=== PATIENT | male | born 1970 | race Caucasian/White ===

== ENCOUNTER 2016-11-08 11:28 | Emergency (ER) | payer BC ==
[2016-11-08 11:34] VITALS: BP 140/93; PULSE 74; RESP 18; TEMP 97.5
[2016-11-08] MEDS ORDERED: TAMSULOSIN 0.4 MG CAP.ER.24H PO STA (11:40)
[2016-11-08] MEDS ORDERED: SODIUM CHLORIDE 0.9% 1,000 ML IV STA (11:40)
[2016-11-08] MEDS ORDERED: HYDROmorphone 1 MG/ML 1 ML SYRINGE IVP STA (11:40)
[2016-11-08] MEDS ORDERED: ONDANSETRON 4 MG/2 ML VIAL IVP STA (11:40)
[2016-11-08 12:09] LABS: Basophils % (A) 1 %; CH 29.8; CHCM 34.4; Eosinophils # (A) 0.2 k/uL (0-0.7); Eosinophils % (A) 4 %; HCT 45.8 % (39.0-53.0); HDW 2.59; HGB 16.1 gm/dL (13.0-17.5); Luc # (Auto) 0.17; Luc % (Auto) 3; Lymphocytes # (A) 1.2 k/uL (1.0-4.8); Lymphocytes % (A) 22 %; MCH 30.6 pg (25.0-35.0); MCHC 35.3 g/dL (31.0-37.0); MCV 86.8 fL (80.0-100.0); Mean Platelet Volume 6.2; Monocytes # (A) 0.3 k/uL (0-1.0); Monocytes % (A) 5 %; Neutrophils # (A) 3.6 k/uL (1.3-7.7); Neutrophils % (A) 65 %; RBC 5.27 m/uL (4.30-5.90); WBC 5.5 k/uL (3.8-10.6); WBC (Perox) 5.44
[2016-11-08 12:18] LABS: ALT 55 U/L (21-72); AST 28 U/L (17-59); Alkaline Phosphatase 71 U/L (38-126); Amylase 49 U/L (30-110); Anion Gap 12 mmol/L; Blood Urea Nitrogen 14 mg/dL (9-20); Calcium 9.7 mg/dL (8.4-10.2); Carbon Dioxide 22 mmol/L (22-30); Chloride 106 mmol/L (98-107); Glucose 121 mg/dL (74-99); Non-African American GFR(MDRD) >60 (>60 ml/min/1.73 sqM); Potassium 4.5 mmol/L (3.5-5.1); Sodium 140 mmol/L (137-145); Total Bilirubin 0.6 mg/dL (0.2-1.3); Total Protein 7.5 g/dL (6.3-8.2)
--- NOTE | 2016-11-08 12:26 | ED ---
Abdominal Pain HPI - General Chief Complaint: Abdominal Pain Stated Complaint: Abd.pain Time Seen by Provider: 11/08/16 11:36 Source: patient, RN notes reviewed Mode of arrival: ambulatory Limitations: no limitations - History of Present Illness Initial Comments: 46-year-old male presents to the emergency department with a chief complaint of left-sided flank pain that radiates into her left groin. Patient has a history of kidney stones states this is reminding him of it. Patient states he's had some nausea without vomiting. Patient states he has a headache changes in urination or blood in the urine that he has noticed. Patient states that he was concerned due to the pains without that he should be evaluated. Patient denies any recent fever, chills, shortness of breath, chest pain, abdominal vomiting, numbness or tingling, dysuria or hematuria, constipation or diarrhea, headaches or visual changes, or any other current symptoms. - Related Data Home Medications Medication Instructions Recorded Confirmed Cephalexin [Keflex] 500 mg PO BID 11/08/16 11/08/16 HYDROcodone/APAP 10-325MG [[place] 1 tab PO BID PRN 11/08/16 11/08/16 10-325] Lisinopril [Prinivil] 10 mg PO DAILY 11/08/16 11/08/16 Previous Rx's Medication Instructions Recorded Hydrocodone/Acetaminophen [[place] 1 each PO Q6HR PRN #20 tab 11/08/16 5-325] Ketorolac [Toradol] 10 mg PO Q6HR #20 tab 11/08/16 Ondansetron Odt [Zofran ODT] 4 mg PO Q8HR PRN #20 tab 11/08/16 Tamsulosin [Flomax] 0.4 mg PO DAILY #5 cap 11/08/16 Allergies Allergy/AdvReac Type Severity Reaction Status Date / Time No Known Allergies Allergy Verified 11/08/16 12:02 Review of Systems ROS Statement: Those systems with pertinent positive or pertinent negative responses have been documented in the HPI. ROS Other: All systems not noted in ROS Statement are negative. Past Medical History Past Medical History: Coronary Artery Disease (CAD) Additional Past Medical History / Comment(s): kidney stones, heart murmur History of Any Multi-Drug Resistant Organisms: None Reported Past Surgical History: Heart Catheterization, Tonsillectomy Additional Past Surgical History / Comment(s): lithotripsy Past Psychological History: No Psychological Hx Reported Smoking Status: Former smoker Past Alcohol Use History: None Reported Past Drug Use History: None Reported General Exam - General Exam Comments Initial Comments: General: The patient is awake and alert, in no distress, and does not appear acutely ill. Eye: Pupils are equal, round and reactive to light, extra-ocular movements are intact; there is normal conjunctiva bilaterally. No signs of icterus. Ears, nose, mouth and throat: There are moist mucous membranes and no oral lesions. Neck: The neck is supple, there is no tenderness. Cardiovascular: There is a regular rate and rhythm. No murmur, rub or gallop is appreciated. Respiratory: Lungs are clear to auscultation, respirations are non-labored, breath sounds are equal. No wheezes, stridor, rales, or rhonchi. Gastrointestinal: Soft, non-distended, non-tender abdomen without masses or organomegaly noted. There is no rebound or guarding present. No CVA tenderness. Bowel sounds are unremarkable. Back: There is no tenderness to palpation in the midline. There is no obvious deformity. No rashes noted. Musculoskeletal: Normal ROM, no tenderness, There is no pedal edema. There is no calf tenderness or swelling. Sensation intact. Pulses equal bilaterally 2+. Neurological: CN II-XII intact, There are no obvious motor or sensory deficits. Coordination appears grossly intact. Speech is normal. Skin: Skin is warm and dry and no rashes or lesions are noted. Psychiatric: Cooperative, appropriate mood & affect, normal judgment. Limitations: no limitations Course Vital Signs 11/08/16 11:32 Temperature 97.5 F L Pulse Rate 74 Respiratory 18 Rate Blood Pressure 140/93 O2 Sat by Pulse 99 Oximetry Medical Decision Making - Medical Decision Making 46-year-old male presents emergency Department chief complaint of left-sided flank pain. At this time CT results lab results are reviewed. We discussed care follow-up and return parameters. We discussed follow-up with urology questions. He stated he understood the plan. This time we will discharged home. - Lab Data Result diagrams: 11/08/16 11:40 11/08/16 11:40 Lab Results 11/08/16 11/08/16 11/08/16 Range/Units 11:40 11:40 12:48 WBC 5.5 (3.8-10.6) k/uL RBC 5.27 (4.30-5.90) m/uL Hgb 16.1 (13.0-17.5) gm/dL Hct 45.8 (39.0-53.0) % MCV 86.8 (80.0-100.0) fL MCH 30.6 (25.0-35.0) pg MCHC 35.3 (31.0-37.0) g/dL RDW 13.0 (11.5-15.5) % Plt Count 355 (150-450) k/uL Neutrophils % 65 % Lymphocytes % 22 % Monocytes % 5 % Eosinophils % 4 % Basophils % 1 % Neutrophils # 3.6 (1.3-7.7) k/uL Lymphocytes # 1.2 (1.0-4.8) k/uL Monocytes # 0.3 (0-1.0) k/uL Eosinophils # 0.2 (0-0.7) k/uL Basophils # 0.0 (0-0.2) k/uL Sodium 140 (137-145) mmol/L Potassium 4.5 (3.5-5.1) mmol/L Chloride 106 (98-107) mmol/L Carbon Dioxide 22 (22-30) mmol/L Anion Gap 12 mmol/L BUN 14 (9-20) mg/dL Creatinine 0.82 (0.66-1.25) mg/dL Est GFR (MDRD) Af Amer >60 (>60 ml/min/1.73 sqM) Est GFR (MDRD) Non-Af >60 (>60 ml/min/1.73 sqM) Glucose 121 H (74-99) mg/dL Calcium 9.7 (8.4-10.2) mg/dL Total Bilirubin 0.6 (0.2-1.3) mg/dL AST 28 (17-59) U/L ALT 55 (21-72) U/L Alkaline Phosphatase 71 (38-126) U/L Total Protein 7.5 (6.3-8.2) g/dL Albumin 4.7 (3.5-5.0) g/dL Amylase 49 (30-110) U/L Lipase 87 (23-300) U/L Urine Color Yellow Urine Appearance Clear (Clear) Urine pH 5.5 (5.0-8.0) Ur Specific [place] 1.013 (1.001-1.035) Urine Protein Trace H (Negative) Urine Glucose (UA) Negative (Negative) Urine Ketones Negative (Negative) Urine Blood Moderate H (Negative) Urine Nitrite Negative (Negative) Urine Bilirubin Negative (Negative) Urine Urobilinogen <2.0 (<2.0) mg/dL Ur Leukocyte Esterase Negative (Negative) Urine RBC 32 H (0-5) /hpf Urine WBC 2 (0-5) /hpf Urine Mucus Rare H (None) /hpf - Radiology Data Radiology results: report reviewed, image reviewed Disposition Clinical Impression: Ureteral calculus Disposition: HOME SELF-CARE Condition: Stable Instructions: Kidney Stones (ED) Additional Instructions: Please use medication as discussed. Please follow up with family doctor if symptoms have not improved over the next two days. Please return to the emergency room if your symptoms increase or worsen or for any other concerns. Prescriptions: Hydrocodone/Acetaminophen [[place] 5-325] 1 each PO Q6HR PRN #20 tab PRN Reason: Pain Ketorolac [Toradol] 10 mg PO Q6HR #20 tab Ondansetron Odt [Zofran ODT] 4 mg PO Q8HR PRN #20 tab PRN Reason: Nausea Tamsulosin [Flomax] 0.4 mg PO DAILY #5 cap Referrals: Shravan Santoyo MD [Primary Care Provider] - 1-2 days Edwardo Pollack MD [STAFF PHYSICIAN] - 1-2 days Time of Disposition: 13:32
[2016-11-08] MEDS ORDERED: KETOROLAC 30 MG/ML 1 ML VIAL IVP STA (12:38)
[2016-11-08 13:09] LABS: Appearance,Urine Clear (Clear); Bilirubin,Urine Negative (Negative); Glucose,Urine (UA) Negative (Negative); Ketones,Urine Negative (Negative); Leukocyte Esterase,Urine Negative (Negative); Mucus,Urine Rare /hpf; Nitrite,Urine Negative (Negative); PH, Urine 5.5 (5.0-8.0); Particle Count 1490; Protein,Urine Trace (Negative); RBC,Urine 32 /hpf (0-5); Specific Gravity,Urine 1.013 (1.001-1.035); UA Billing (MACRO vs. MICRO) MICRO; Urobilinogen,Urine <2.0 mg/dL (<2.0); WBC,Urine 2 /hpf (0-5)
--- NOTE | 2016-11-08 13:24 | CT ---
EXAMINATION TYPE: CT abdomen pelvis wo con DATE OF EXAM: 11/08/2016 COMPARISON: NONE HISTORY: Abdominal pain CT DLP: 799.80 mGycm Automated exposure control for dose reduction was used. TECHNIQUE: Helical acquisition of images was performed from the lung bases through the pelvis. FINDINGS: Lung bases are clear. There is no pleural effusion. There is no pericardial effusion. Liver spleen pancreas gallbladder appear normal. Bile ducts are not dilated. There is no adrenal mass . There is a 5 cm cortical cyst on the upper pole right kidney. There is a 5 mm calculus in the posteri or right kidney. There is mild left-sided hydronephrosis with a 8 mm calculus at the ureteropelvic ju nction. There is no retroperitoneal adenopathy. There is no ascites. Appendix appears normal. I see n o intestinal wall thickening. There are no dilated loops. Bladder distends smoothly. There is no sign of a pelvic mass. There is 5% depression of the superior endplate of L1 vertebra. IMPRESSION: BILATERAL RENAL CALCULI. THERE IS AN OBSTRUCTING CALCULUS AT THE LEFT URETERAL PELVIC JUNCTION WITH M ILD LEFT-SIDED HYDRONEPHROSIS AND PERINEPHRIC MILD EDEMA. RIGHT RENAL CORTICAL CYST. OLD MILD COMPRESSION FRACTURE OF L1.
== END 2016-11-08 13:40 | disposition home or self-care (01) ==
LOC: EC 11:28
DX: N20.1 Calculus of ureter (principal); R11.0 Nausea; Z87.891 Personal history of nicotine dependence; Z79.899 Other long term (current) drug therapy
CPT/HCPCS: 36415; 80053; 82150; 83690; 85025; 81001; 87086; 74176; 99284; 96374; 96375 ×2; 96361 ×2; J2405; J1885; J1170

== ENCOUNTER → 2016-12-05 | Outpatient (CLI) | payer BC | END | disposition home or self-care (01) | LOC: RADMRIMAIN 06:38 | PROVIDERS: ATTEND Family Medicine | DX: Z53.9 Procedure and treatment not carried out, unspecified reason (principal) ==

== ENCOUNTER → 2016-12-06 | Outpatient (CLI) | payer BC | END | disposition home or self-care (01) | LOC: RADMRIMAIN 19:29 | PROVIDERS: ATTEND Family Medicine | DX: Z53.9 Procedure and treatment not carried out, unspecified reason (principal) ==

== ENCOUNTER 2017-03-21 13:14 | Emergency (ER) | payer BC ==
[2017-03-21 13:35] VITALS: RESP 18
[2017-03-21] MEDS ORDERED: LIDOCAINE VISCOUS 2% 15 ML CUP MUCOUS MEM ONE (13:54)
--- NOTE | 2017-03-21 14:21 | ED ---
Head Injury HPI - General Chief complaint: Head Injury Stated complaint: Facial Injury Time Seen by Provider: 03/21/17 13:45 Source: patient, RN notes reviewed, old records reviewed Mode of arrival: wheelchair Limitations: no limitations - History of Present Illness Initial comments: Patient is a 47-year-old male presents to the emergency department with chief complaint of a lower inner lip laceration injury. 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 Patient reports that lower part of his chin, and the force caused a laceration over the inner lower lip where it connects to the gums. Patient's reports that he felt dizzy and has a mild headache at this time. He denies any other injuries associated with this. Patient states he has no difficulty swallowing or breathing. Patient states that he had no loss of consciousness. Denies any loose teeth or tongue lacerations. - Related Data Home Medications Medication Instructions Recorded Confirmed Lisinopril [Prinivil] 10 mg PO HS 11/08/16 03/21/17 Ibuprofen [Motrin] 800 mg PO TID PRN 03/21/17 03/21/17 Previous Rx's Medication Instructions Recorded Acetaminophen-Codeine 300-30mg 1 tab PO Q6H PRN #15 tablet 03/21/17 [Tylenol #3] Amoxicillin 500 mg PO Q8H #21 capsule 03/21/17 Allergies/Adverse reactions: Allergies Allergy/AdvReac Type Severity Reaction Status Date / Time No Known Allergies Allergy Verified 03/21/17 15:06 Review of Systems ROS Statement: Those systems with pertinent positive or pertinent negative responses have been documented in the HPI. ROS Other: All systems not noted in ROS Statement are negative. Past Medical History Past Medical History: Coronary Artery Disease (CAD) Additional Past Medical History / Comment(s): kidney stones, heart murmur History of Any Multi-Drug Resistant Organisms: None Reported Past Surgical History: Heart Catheterization, Tonsillectomy Additional Past Surgical History / Comment(s): lithotripsy Past Psychological History: No Psychological Hx Reported Smoking Status: Light tobacco smoker Past Alcohol Use History: None Reported Past Drug Use History: None Reported General Exam - General Exam Comments Initial Comments: This is a well-appearing 47-year-old male. No acute distress. Limitations: no limitations General appearance: alert Head exam: Present: atraumatic, normocephalic, normal inspection Eye exam: Present: normal appearance, PERRL, EOMI. Absent: scleral icterus, conjunctival injection, periorbital swelling ENT exam: Present: normal exam, TM's normal bilaterally, other (Patient has a contusion over the outer part of the chin. is able to open and close his mouth, no trismus.). Absent: mucous membranes moist (Patient has a 2-3 cm laceration between the lower lip where Towards the gums. Teeth are intact, no loose teeth.) Neck exam: Present: normal inspection, full ROM Respiratory exam: Present: normal lung sounds bilaterally. Absent: respiratory distress, wheezes, rales, rhonchi, stridor Cardiovascular Exam: Present: regular rate, normal rhythm, normal heart sounds. Absent: systolic murmur, diastolic murmur, rubs, gallop, clicks GI/Abdominal exam: Present: soft, normal bowel sounds. Absent: distended, tenderness, guarding, rebound, rigid Extremities exam: Present: normal inspection, full ROM, normal capillary refill. Absent: tenderness, pedal edema, joint swelling, calf tenderness Back exam: Present: normal inspection Neurological exam: Present: alert, oriented X3, CN II-XII intact Psychiatric exam: Present: normal affect, normal mood Skin exam: Present: warm, dry, intact, normal color. Absent: rash Course Vital Signs 03/21/17 13:33 Temperature 98.2 F Pulse Rate 80 Respiratory 18 Rate Blood Pressure 95/55 O2 Sat by Pulse 99 Oximetry Procedures - Laceration Laceration #1 Site: oral (Crease of lower lip and anterior mandible.) Size (cm): 3 Description: linear Depth: simple, single layer Anesthetic Used: lidocaine 1% Anesthesia Technique: local infiltration Amount (mls): 3 Pre-repair: wound explored, irrigated extensively Type of Sutures: nylon, vicryl Size of Sutures: 5-0 Number of Sutures: 7 Technique: simple, interrupted Patient Tolerated Procedure: well, no complications Medical Decision Making - Medical Decision Making Patient is a 47-year-old male chief complaint of a lower lip laceration between his mandible and lip. Patient was lifting a pipe and it came and hit the bottom of his chin. He does have extensive soft tissue swelling of his chin. No throat or neck swelling. Patient ET tube brain and facial bones shows no evidence of any acute abnormalities, there is a soft tissue swelling over the mandible, and evidence of the lip laceration. Patient's wound was irrigated, and closed with 7 rapid dissolving Vicryl sutures. Discussed the patient needs to take Motrin and will be given a prescription for pain medicine. Discussed that he needs to take the antibiotics as well. Discussed only having soft foods and icing the areas mentioned possible. Discussed following up with a dentist. Patient understands treatment plan will comply. Return parameters were discussed. - Radiology Data Radiology results: report reviewed No acute intracranial hemorrhage, mass effect or midline shift is seen. His evidence of sinus disease. Soft tissue injury with small laceration anterior to the mandible, no underlying acute facial bone or mandibular fracture. Moderate chronic. Nasal sinus disease. Disposition Clinical Impression: Lip laceration Disposition: HOME SELF-CARE Condition: Good Instructions: Acute Dental Trauma (ED) Additional Instructions: Patient advised to allow the stitches to dissolve on their own. Patient is to have soft foods. Apply ice over the lip is much as possible. Complete her antibiotic prescription. Follow-up with the dentist. Return to the emergency department if any alarming signs or symptoms occur. Prescriptions: Acetaminophen-Codeine 300-30mg [Tylenol #3] 1 tab PO Q6H PRN #15 tablet PRN Reason: Pain Amoxicillin 500 mg PO Q8H #21 capsule Referrals: Shravan Santoyo MD [Primary Care Provider] - 1-2 days Time of Disposition: 14:57
--- NOTE | 2017-03-21 14:25 | CT ---
EXAMINATION TYPE: CT brain wo con DATE OF EXAM: 03/21/2017 COMPARISON: NONE HISTORY: Facial injury CT DLP: 1121.01 mGycm. Automated Exposure Control for Dose Reduction was Utilized. TECHNIQUE: CT scan of the head is performed without contrast. FINDINGS: There is no acute intracranial hemorrhage, mass effect, or midline shift identified. The ventricles and sulci are within normal limits in size. The globes are intact and the visualized sin uses are remarkable for probable mucus retention cyst on the right, there may be underlying polyp dis ease within the maxillary sinus, inflammatory change present in the frontal sinus and ethmoid air manolo ls. IMPRESSION: No acute intracranial hemorrhage, mass effect, or midline shift is seen. Sinus disease.
--- NOTE | 2017-03-21 14:28 | CT ---
EXAMINATION TYPE: CT facial bones wo con DATE OF EXAM: 03/21/2017 COMPARISON: NONE HISTORY: 47-year-old male facial injury TECHNIQUE: Contiguous axial scanning of the facial bones without IV contrast. Coronal reconstructions performed. CT DLP: 551.32 mGycm Automated exposure control for dose reduction was used. FINDINGS: There seems to be soft tissue injury along the right paramedian region anterior to the mandible with soft tissue swelling and foci of soft tissue air. No underlying mandibular fracture. Moderate mucosal thickening along the floors of the maxillary sinuses and ethmoid air cells and mild within the sphen oid and frontal sinuses. Rightward nasal septal deviation. Orbits and globes are intact. IMPRESSION: SOFT TISSUE INJURY WITH SMALL LACERATION ANTERIOR TO THE MANDIBLE. NO UNDERLYING ACUTE FACIAL BONE OR MANDIBULAR FRACTURE. MODERATE CHRONIC PARANASAL SINUS DISEASE.
[2017-03-21 15:17] VITALS: BP 126/70; PULSE 79; TEMP 98
== END 2017-03-21 15:18 | disposition home or self-care (01) ==
LOC: EC 13:14
DX: S01.511A Laceration without foreign body of lip, initial encounter (principal); S00.83XA Contusion of other part of head, initial encounter; I25.10 Atherosclerotic heart disease of native coronary artery without angina pectoris; F17.200 Nicotine dependence, unspecified, uncomplicated; Z79.899 Other long term (current) drug therapy; W22.8XXA Striking against or struck by other objects, initial encounter; Y93.89 Activity, other specified
CPT/HCPCS: 12013; 70450; 70486; 99283; 99284

== ENCOUNTER 2017-03-21 16:29 | Emergency (ER) | payer BC ==
[2017-03-21 16:34] VITALS: BP 115/67; PULSE 71; RESP 16; TEMP 98.5
[2017-03-21] MEDS ORDERED: LIDOCAINE 2%-EPI 1:100,000 20 ML VIAL SQ STA (16:57)
--- NOTE | 2017-03-21 16:58 | ED ---
Recheck HPI <Max Horn - Last Filed: 03/21/17 17:08> - General Source: patient, RN notes reviewed, old records reviewed Mode of arrival: ambulatory Limitations: no limitations <Yeimi Cho - Last Filed: 03/21/17 21:19> - General Chief Complaint: Recheck/Abnormal Lab/Rx Stated Complaint: Revisit-Lip Lac Time Seen by Provider: 03/21/17 16:48 - History of Present Illness Initial Comments: Is a 47-year-old male for reevaluation after his sutures similar reopened and has worsening bleeding over his laceration between his lower lip and his gum. He was fitted earlier today by metal pole has a laceration there. Patient was originally seen by myself, and had sudden subcutaneous sutures placed. He reports that he still had some bleeding after he was discharged. He states that he did not eat anything or drink anything that causes to reopened.Patient denies any recent fever, chills, shortness of breath, chest pain, back pain, abdominal pain, nausea vomiting, numbness or tingling, dysuria or hematuria, constipation or diarrhea, headaches or visual changes, or any other current symptoms (Yeimi Cho) - Related Data Home Medications Medication Instructions Recorded Confirmed Lisinopril [Prinivil] 10 mg PO HS 11/08/16 03/21/17 Ibuprofen [Motrin] 800 mg PO TID PRN 03/21/17 03/21/17 Previous Rx's Medication Instructions Recorded Acetaminophen-Codeine 300-30mg 1 tab PO Q6H PRN #15 tablet 03/21/17 [Tylenol #3] Amoxicillin 500 mg PO Q8H #21 capsule 03/21/17 Allergies Allergy/AdvReac Type Severity Reaction Status Date / Time No Known Allergies Allergy Verified 03/21/17 15:06 Review of Systems ROS Other: All systems not noted in ROS Statement are negative. <Max Horn - Last Filed: 03/21/17 17:08> ROS Other: All systems not noted in ROS Statement are negative. <Yeimi Cho - Last Filed: 03/21/17 21:19> ROS Statement: Those systems with pertinent positive or pertinent negative responses have been documented in the HPI. Past Medical History Past Medical History: Coronary Artery Disease (CAD) Additional Past Medical History / Comment(s): kidney stones, heart murmur History of Any Multi-Drug Resistant Organisms: None Reported Past Surgical History: Heart Catheterization, Tonsillectomy Additional Past Surgical History / Comment(s): lithotripsy Past Psychological History: No Psychological Hx Reported Smoking Status: Light tobacco smoker Past Alcohol Use History: None Reported Past Drug Use History: None Reported <Yeimi Cho - Last Filed: 03/21/17 21:19> General Exam <Max Horn - Last Filed: 03/21/17 17:08> Limitations: no limitations General appearance: alert, in no apparent distress Head exam: Present: atraumatic, normocephalic, normal inspection Eye exam: Present: normal appearance, PERRL, EOMI. Absent: scleral icterus, conjunctival injection, periorbital swelling ENT exam: Present: normal exam, mucous membranes moist, other (Patient does have a laceration over the inner lower lip between the gum. Laceration is approximately 27 m. It is well approximated. There does appear to be some leakage through the areas between and sutures from his blood is coming through.) Neck exam: Present: normal inspection. Absent: tenderness, meningismus, lymphadenopathy Respiratory exam: Present: normal lung sounds bilaterally. Absent: respiratory distress, wheezes, rales, rhonchi, stridor Cardiovascular Exam: Present: regular rate, normal rhythm, normal heart sounds. Absent: systolic murmur, diastolic murmur, rubs, gallop, clicks GI/Abdominal exam: Present: soft, normal bowel sounds. Absent: distended, tenderness, guarding, rebound, rigid Extremities exam: Present: normal inspection, full ROM, normal capillary refill. Absent: tenderness, pedal edema, joint swelling, calf tenderness Back exam: Present: normal inspection Neurological exam: Present: alert, oriented X3, CN II-XII intact Psychiatric exam: Present: normal affect, normal mood <Yeimi Cho - Last Filed: 03/21/17 21:19> - General Exam Comments Initial Comments: Well-appearing 47-year-old male. No distress. (Yeimi Cho) Vital Signs 03/21/17 16:32 Temperature 98.5 F Pulse Rate 71 Respiratory 16 Rate Blood Pressure 115/67 O2 Sat by Pulse 98 Oximetry Procedures - Laceration Laceration #1 Site: oral Size (cm): 3 Description: linear Anesthetic Used: lidocaine 1%, with epi Anesthesia Technique: local infiltration Amount (mls): 3 Pre-repair: wound explored, irrigated extensively Type of Sutures: vicryl Size of Sutures: 5-0 Number of Sutures: 6 Technique: simple, interrupted Patient Tolerated Procedure: well, no complications <Violet Choily - Last Filed: 03/21/17 21:19> Medical Decision Making <Max Horn - Last Filed: 03/21/17 17:08> <Yeimi Cho - Last Filed: 03/21/17 21:19> - Medical Decision Making the patient is seen and examined. The case is discussed with the PA and I agree with findings as documented. (Max Horn) 47-year-old male for reevaluation for a bleeding laceration lower lip. Patient wound was again sutured with approximately 6 more sutures. The wound is closed tightly. Patient is a 30 been started on amoxicillin for infection prevention. Patient advised that if it does continue to bleed patient should apply cold compresses over the area. Patient understands needs follow-up with dentist as well. Patient is history plan will comply. Return parameters were discussed. ( Yeimi Cho) Disposition <Max Horn - Last Filed: 03/21/17 17:08> <Yeimi Cho - Last Filed: 03/21/17 21:19> Clinical Impression: Lip laceration Disposition: HOME SELF-CARE Condition: Good Instructions: Care For Your Absorbable Stitches (ED) Additional Instructions: Patient is to complete her antibiotic prescription. At the does start to rebleed get a gauze with ice cold water and apply over the area. Patient should follow up with dentist as directed. Return to emergency department if any alarming signs or symptoms occur. Referrals: Shravan Santoyo MD [Primary Care Provider] - 1-2 days
== END 2017-03-21 17:47 | disposition home or self-care (01) ==
LOC: EC 16:29
DX: S01.511D Laceration without foreign body of lip, subsequent encounter (principal); I25.10 Atherosclerotic heart disease of native coronary artery without angina pectoris; F17.200 Nicotine dependence, unspecified, uncomplicated; Z79.899 Other long term (current) drug therapy
CPT/HCPCS: 12013; 99283

== ENCOUNTER 2017-11-07 11:02 | Emergency (ER) | payer BC ==
[2017-11-07 11:15] VITALS: RESP 18
[2017-11-07] MEDS ORDERED: KETOROLAC 30 MG/ML 1 ML VIAL IVP STA (11:54)
[2017-11-07] MEDS ORDERED: SODIUM CHLORIDE 0.9% 500 ML IV STA (11:54)
--- NOTE | 2017-11-07 11:57 | ED ---
Abdominal Pain HPI - General Chief Complaint: Abdominal Pain Stated Complaint: Abdominal pain Time Seen by Provider: 11/07/17 11:05 Source: patient, RN notes reviewed Mode of arrival: ambulatory Limitations: no limitations - History of Present Illness Initial Comments: This is a 47-year-old male who presents emergency room complaining of left lower quadrant abdominal pain. Patient states it started about 4 days ago. Patient states he has had a few episodes of diarrhea but not profuse diarrhea. Patient states his stools are dark but not black. Patient denies any history of diverticulosis. Patient denies ever having a colonoscopy in the past. Patient states he has had a kidney stone in the past but this does not feel like a kidney stone. Patient states left lower quadrant is tender to palpation. Patient denies any dysuria hematuria urinary frequency. Patient denies any nausea vomiting. Patient denies any recent fever or chills. Patient denies any chest pain difficulty breathing shortness of breath. - Related Data Home Medications Medication Instructions Recorded Confirmed Lisinopril [Prinivil] 10 mg PO HS 11/08/16 11/07/17 Naproxen Sodium [Aleve] 440 mg PO DAILY PRN 11/07/17 11/07/17 Previous Rx's Medication Instructions Recorded Hydrocodone/Acetaminophen [[place] 1 each PO Q4HR PRN #14 tab 11/07/17 5-325] Ketorolac [Toradol] 10 mg PO Q6HR #15 tab 11/07/17 Tamsulosin [Flomax] 0.4 mg PO DAILY #10 cap 11/07/17 Allergies Allergy/AdvReac Type Severity Reaction Status Date / Time No Known Allergies Allergy Verified 11/07/17 11:21 Review of Systems ROS Statement: Those systems with pertinent positive or pertinent negative responses have been documented in the HPI. ROS Other: All systems not noted in ROS Statement are negative. Past Medical History Past Medical History: Coronary Artery Disease (CAD) Additional Past Medical History / Comment(s): kidney stones, heart murmur History of Any Multi-Drug Resistant Organisms: None Reported Past Surgical History: Heart Catheterization, Orthopedic Surgery, Tonsillectomy Additional Past Surgical History / Comment(s): lithotripsy, right shoulder surgery Past Psychological History: No Psychological Hx Reported Smoking Status: Light tobacco smoker Past Alcohol Use History: Rare Past Drug Use History: None Reported General Exam - General Exam Comments Initial Comments: GENERAL: Patient is well-developed and well-nourished. Patient is nontoxic and well- hydrated and is in mild distress. ENT: Neck is soft and supple. No significant lymphadenopathy is noted. Oropharynx is clear. Moist mucous membranes. Neck has full range of motion without eliciting any pain. EYES: The sclera were anicteric and conjunctiva were pink and moist. Extraocular movements were intact and pupils were equal round and reactive to light. Eyelids were unremarkable. PULMONARY: Unlabored respirations. Good breath sounds bilaterally. No audible rales rhonchi or wheezing was noted. CARDIOVASCULAR: There is a regular rate and rhythm without any murmurs gallops or rubs. ABDOMEN: Left lower quadrant has some point tenderness but no rebound.. No palpable organomegaly was noted. There is no palpable pulsatile mass. SKIN: Skin is clear with no lesions or rashes and otherwise unremarkable. NEUROLOGIC: Patient is alert and oriented x3. Cranial nerves II through XII are grossly intact. Motor and sensory are also intact. Normal speech, volume and content. Symmetrical smile. MUSCULOSKELETAL: Normal extremities with adequate strength and full range of motion. LYMPHATICS: No significant lymphadenopathy is noted PSYCHIATRIC: Normal psychiatric evaluation. Normal interpersonal interactions appears functionally intact in deals appropriately with others. No signs of depression. No signs of anxiety. Limitations: no limitations Course Vital Signs 11/07/17 11:13 Temperature 98.2 F Pulse Rate 86 Respiratory 18 Rate Blood Pressure 134/80 O2 Sat by Pulse 98 Oximetry Medical Decision Making - Medical Decision Making I went back into the room to reexamine the patient he was pain-free. CT showed a 5.3 mm renal pelvis stone which is causing hydronephrosis. - Lab Data Result diagrams: 11/07/17 11:30 11/07/17 11:30 Lab Results 11/07/17 11/07/17 11/07/17 Range/Units 11:30 11:30 11:30 WBC 5.4 (3.8-10.6) k/uL RBC 5.70 (4.30-5.90) m/uL Hgb 17.4 (13.0-17.5) gm/dL Hct 51.2 (39.0-53.0) % MCV 89.7 (80.0-100.0) fL MCH 30.5 (25.0-35.0) pg MCHC 34.0 (31.0-37.0) g/dL RDW 14.0 (11.5-15.5) % Plt Count 341 (150-450) k/uL Neutrophils % 59 % Lymphocytes % 27 % Monocytes % 7 % Eosinophils % 3 % Basophils % 1 % Neutrophils # 3.2 (1.3-7.7) k/uL Lymphocytes # 1.5 (1.0-4.8) k/uL Monocytes # 0.4 (0-1.0) k/uL Eosinophils # 0.2 (0-0.7) k/uL Basophils # 0.0 (0-0.2) k/uL Sodium 137 (137-145) mmol/L Potassium 4.6 (3.5-5.1) mmol/L Chloride 101 (98-107) mmol/L Carbon Dioxide 22 (22-30) mmol/L Anion Gap 14 mmol/L BUN 15 (9-20) mg/dL Creatinine 1.02 (0.66-1.25) mg/dL Est GFR (CKD-EPI)AfAm >90 (>60 ml/min/1.73 sqM) Est GFR (CKD-EPI)NonAf 89 (>60 ml/min/1.73 sqM) Glucose 105 H (74-99) mg/dL Calcium 9.9 (8.4-10.2) mg/dL Total Bilirubin 0.6 (0.2-1.3) mg/dL AST 28 (17-59) U/L ALT 54 (21-72) U/L Alkaline Phosphatase 62 (38-126) U/L Total Protein 7.3 (6.3-8.2) g/dL Albumin 4.7 (3.5-5.0) g/dL Amylase 58 (30-110) U/L Lipase 96 (23-300) U/L Urine Color Light Yellow Urine Appearance Clear (Clear) Urine pH 5.5 (5.0-8.0) Ur Specific [place] 1.006 (1.001-1.035) Urine Protein Negative (Negative) Urine Glucose (UA) Negative (Negative) Urine Ketones Negative (Negative) Urine Blood Negative (Negative) Urine Nitrite Negative (Negative) Urine Bilirubin Negative (Negative) Urine Urobilinogen <2.0 (<2.0) mg/dL Ur Leukocyte Esterase Negative (Negative) Disposition Clinical Impression: Kidney stone Disposition: [facility] Instructions: Kidney Stones (ED) Prescriptions: Hydrocodone/Acetaminophen [[place] 5-325] 1 each PO Q4HR PRN #14 tab PRN Reason: Pain Ketorolac [Toradol] 10 mg PO Q6HR #15 tab Tamsulosin [Flomax] 0.4 mg PO DAILY #10 cap Is patient prescribed a controlled substance at d/c from ED?: Yes When asked, does pt state using other controlled substances?: No If prescribed controlled substance>3 days was MAPS reviewed?: Prescribed <3 Days If opioid is for acute pain is fill amount 7 days or less?: Yes If Rx opioid, was Start Talking consent form obtained?: Yes Referrals: Shravan Santoyo MD [Primary Care Provider] - 1-2 days Time of Disposition: 13:56
[2017-11-07 12:17] LABS: Basophils % (A) 1 %; Eosinophils # (A) 0.2 k/uL (0-0.7); Eosinophils % (A) 3 %; HCT 51.2 % (39.0-53.0); HGB 17.4 gm/dL (13.0-17.5); Lymphocytes # (A) 1.5 k/uL (1.0-4.8); Lymphocytes % (A) 27 %; MCH 30.5 pg (25.0-35.0); MCV 89.7 fL (80.0-100.0); Mean Platelet Volume 6.2; Monocytes # (A) 0.4 k/uL (0-1.0); Monocytes % (A) 7 %; Neutrophils # (A) 3.2 k/uL (1.3-7.7); Neutrophils % (A) 59 %; Platelet Count 341 k/uL (150-450); WBC 5.4 k/uL (3.8-10.6)
[2017-11-07 12:20] LABS: ALT 54 U/L (21-72); AST 28 U/L (17-59); Albumin 4.7 g/dL (3.5-5.0); Alkaline Phosphatase 62 U/L (38-126); Amylase 58 U/L (30-110); Anion Gap 14 mmol/L; Appearance,Urine Clear (Clear); Bilirubin,Urine Negative (Negative); Blood Urea Nitrogen 15 mg/dL (9-20); Blood,Urine Negative (Negative); Calcium 9.9 mg/dL (8.4-10.2); Carbon Dioxide 22 mmol/L (22-30); Chloride 101 mmol/L (98-107); Color,Urine Light Yellow; Glucose 105 mg/dL (74-99); Glucose,Urine (UA) Negative (Negative); Ketones,Urine Negative (Negative); Leukocyte Esterase,Urine Negative (Negative); Lipase 96 U/L (23-300); Nitrite,Urine Negative (Negative); PH, Urine 5.5 (5.0-8.0); Potassium 4.6 mmol/L (3.5-5.1); Protein,Urine Negative (Negative); Sodium 137 mmol/L (137-145); Specific Gravity,Urine 1.006 (1.001-1.035); Total Bilirubin 0.6 mg/dL (0.2-1.3); Total Protein 7.3 g/dL (6.3-8.2); Urobilinogen,Urine <2.0 mg/dL (<2.0)
--- NOTE | 2017-11-07 13:42 | CT ---
EXAMINATION TYPE: CT abdomen pelvis w con DATE OF EXAM: 11/07/2017 COMPARISON: NONE HISTORY: Left lower quadrant pain with diarrhea x [address] DLP: 1570 mGycm Automated exposure control for dose reduction was used. CONTRAST: CT scan of the abdomen pelvis is performed with IV Contrast, patient injected with 100 mL of Isovue M 300. FINDINGS- LUNG BASES- No significant abnormality is appreciated. LIVER/GB-tiny sub-5 mm hypodensity near the dome of the liver is too small to characterize. There is slightly reduced attenuation throughout the liver correlate for hepatic steatosis.. PANCREAS- No gross abnormality is seen. SPLEEN- No gross abnormality is seen. ADRENALS- No gross abnormality is seen. KIDNEYS/BLADDER-there is a 2 mm lower pole right renal calculus. There is a left renal pelvic calcification measuring a diameter of 5.3 mm resulting in mild left hydr onephrosis.. There are numerous hypodensities within the kidneys bilaterally with the largest seen in the right measuring 5 Hounsfield units and 4.6 cm. BOWEL-bowel gas pattern nonspecific with no obstruction. There numerous diverticuli. No active inflam matory changes seen. Mild wall thickening of the distal ileum with no surrounding inflammatory change . LYMPH NODES- No greater than 1cm abdominal or pelvic lymph nodes are appreciated. OSSEOUS STRUCTURES-degenerative change of the spine noted particularly at L5-S1. Spondylolysis of L5 noted.. OTHER- aorta of normal caliber. There is a retroaortic left renal vein. IMPRESSION- 1. Mild left hydronephrosis secondary to 5.3 mm left renal pelvic calcification. Nonobstructing lower pole 2 mm right renal calculus. 2. Multiple hypodensities in the kidney and majority which are too small to characterize. The largest is compatible with a simple cyst. 3. Correlate for mild enteritis. 4. Correlate for mild hepatic steatosis
[2017-11-07 14:33] VITALS: BP 128/76; PULSE 69; TEMP 97
== END 2017-11-07 14:33 ==
LOC: EC 11:02
DX: N13.2 Hydronephrosis with renal and ureteral calculous obstruction (principal); I25.10 Atherosclerotic heart disease of native coronary artery without angina pectoris; F17.200 Nicotine dependence, unspecified, uncomplicated; Z95.818 Presence of other cardiac implants and grafts; Z98.890 Other specified postprocedural states; Z79.899 Other long term (current) drug therapy
CPT/HCPCS: 36415; 80053; 82150; 83690; 85025; 81003; 74177; 99284; 96374; 96361 ×2; J1885; Q9967

== ENCOUNTER 2017-11-20 06:30 | Day surgery (SDC) | payer BC ==
[2017-11-16 09:23] VITALS: BMI 30.9
--- NOTE | 2017-11-19 08:09 | P.GSHP ---
History of Present Illness H&P Date: 11/19/17 Chief Complaint: Left Renal Calculus The patient is a 47-year-old white male with a history of urolithiasis. He previously underwent ESWL twice. He now presents with intermittent left flank and lower abdominal pain. A computed tomography scan shows mild left hydronephrosis due to a 5.3 mm left renal pelvic calculus. The computed tomography scan also shows a small right lower pole renal calculus, and bilateral renal cysts. - Constitutional Constitutional: Denies chills, Denies fever - Gastrointestinal Gastrointestinal: Reports diarrhea, Reports nausea - Genitourinary (Female) Genitourinary: Reports kidney stones, Denies hematuria Past Medical History Past Medical History: Coronary Artery Disease (CAD), Hypertension Additional Past Medical History / Comment(s): kidney stones, heart murmur History of Any Multi-Drug Resistant Organisms: None Reported Past Surgical History: Heart Catheterization, Orthopedic Surgery, Tonsillectomy Additional Past Surgical History / Comment(s): lithotripsy, right shoulder surgery Past Anesthesia/Blood Transfusion Reactions: No Reported Reaction Smoking Status: Light tobacco smoker - Past Family History Mother Family Medical History: No Reported History Medications and Allergies Home Medications Medication Instructions Recorded Confirmed Type Lisinopril [Prinivil] 10 mg PO HS 11/08/16 11/16/17 History Hydrocodone/Acetaminophen [[place] 1 each PO Q4HR PRN #14 tab 11/07/17 11/16/17 Rx 5-325] Ketorolac [Toradol] 10 mg PO Q6HR #15 tab 11/07/17 11/16/17 Rx Naproxen Sodium [Aleve] 440 mg PO DAILY PRN 11/07/17 11/16/17 History Tamsulosin [Flomax] 0.4 mg PO DAILY #10 cap 11/07/17 11/16/17 Rx Allergies Allergy/AdvReac Type Severity Reaction Status Date / Time No Known Allergies Allergy Verified 11/16/17 09:18 Surgical - Exam - General well developed, well nourished, no distress - Neck no masses, trachea midline - Respiratory normal respiratory effort, clear to auscultation - Cardiovascular Rhythm: regular Abnormal Heart Sounds: systolic murmur - Abdomen Abdomen: soft, non tender, no guarding, no rigid, no rebound Hernia: none - Genitourinary normal penis with no external lesions, testicles non-tender - Psychiatric oriented to time, oriented to person, oriented to place, speech is normal, memory intact Results - Imaging CT scan - abdomen: report reviewed, image reviewed Assessment and Plan Plan: I had a lengthy discussion with the patient regarding his 5.3 mm left renal pelvic calculus. Treatment options include observation, ESWL, and ureteroscopy with laser lithotripsy. The pros and cons of each were discussed in detail, as were potential risks. He has elected to undergo ESWL. Risks associated with this include anesthesia, renal contusion, perinephric hematoma, incomplete fragmentation, treatment failure, and [place]. He understands the possible need for secondary treatment.
[~2017-11-20 06:30] MED LIST: LACTATED RINGERS 1,000 ML IV SCH; LIDOCAINE 1% 20 ML VIAL (10MG/ML) FOR IV START INTRADERMA PRN; Pre Op ABX Message 1 EACH MISC MISCELLANE ONE
--- NOTE | 2017-11-20 06:52 | XR ---
EXAMINATION TYPE: XR KUB DATE OF EXAM: 11/20/2017 COMPARISON: NONE HISTORY: Kidney stones TECHNIQUE: 2 views FINDINGS: There is a 7 mm calcification over the left renal pelvis. There is possible 3 mm calcificat ion over the lower pole right kidney. There is no sign of intestinal obstruction or pneumoperitoneum. Fecal pattern is normal. There is no evidence of a mass. IMPRESSION: Bilateral renal calculi. Nonacute abdomen.
[2017-11-20 07:16] VITALS: RESP 16; TEMP 96.8
[2017-11-20] MEDS ORDERED: MIDAZOLAM 2 MG/2 ML VIAL ONE (08:37)
[2017-11-20] MEDS ORDERED: fentaNYL (PF) 50 MCG/ML 2 ML AMP ONE (08:37)
[2017-11-20] MEDS ORDERED: LISINOPRIL 10 MG TAB ONE (08:37)
[2017-11-20] MEDS ORDERED: PROPOFOL 10 MG/ML 20 ML VIAL IV ONE (08:37)
--- NOTE | 2017-11-20 09:29 | P.OP ---
Date of Procedure: 11/20/17 Preoperative Diagnosis: Left renal calculus Postoperative Diagnosis: Same Procedure(s) Performed: Left extracorporeal shockwave lithotripsy (ESWL) Anesthesia: MAC Surgeon: Ottoniel Kasper Estimated Blood Loss (ml): 0 IV fluids (ml): 500 Pathology: none sent Condition: stable Disposition: PACU Indications for Procedure: The patient is a 47-year-old white male with a history of urolithiasis. He previously underwent ESWL twice. He now presents with intermittent left flank and lower abdominal pain. A computed tomography scan shows mild left hydronephrosis due to a 5.3 mm left renal pelvic calculus. Operative Findings: Fragmentation of the calculus is evident. Description of Procedure: The patient was taken to the operating room and placed on the DorniEmbarke Delta II lithotripter in the supine position. The calculus was seen on biplanar fluoroscopy. Once the patient was properly positioned and sedated, lithotripsy was performed. The energy level was gradually increased per protocol, to an energy level of 5. After 200 shocks were administered, a 2 minute pause was instituted per protocol. A total of 2500 shocks were given at a rate of 80 shocks per minute. Fluoroscopy was utilized at a minimum to ensure proper positioning and determine the treatment status. The calculus changed in appearance and could only faintly be seen at the completion of the procedure, consistent with fragmentation. The patient tolerated the procedure well was taken to the recovery room in stable condition. Instructions were given to strain the urine, and the patient will follow-up within one week.
[2017-11-20 10:06] VITALS: BP 115/83; PULSE 64
== END 2017-11-20 10:35 | disposition home or self-care (01) ==
LOC: ORWHC2ENDO 06:30
PROVIDERS: ATTEND Urology
DX: N13.2 Hydronephrosis with renal and ureteral calculous obstruction (principal); Z87.442 Personal history of urinary calculi; F17.200 Nicotine dependence, unspecified, uncomplicated; I25.10 Atherosclerotic heart disease of native coronary artery without angina pectoris; I10 Essential (primary) hypertension; R01.1 Cardiac murmur, unspecified; Z79.899 Other long term (current) drug therapy; Z79.1 Long term (current) use of non-steroidal anti-inflammatories (NSAID)
CPT/HCPCS: 74018; 50590; J2250; J3010; J2704

== ENCOUNTER 2017-11-20 21:23 | Emergency (ER) | payer BC ==
[2017-11-20 21:39] VITALS: RESP 18
[2017-11-20] MEDS ORDERED: KETOROLAC 60 MG/2 ML VIAL IVP STA (23:26)
[2017-11-20] MEDS ORDERED: HYDROmorphone 1 MG/ML 1 ML SYRINGE IVP STA (23:26)
[2017-11-20] MEDS ORDERED: ONDANSETRON 4 MG/2 ML VIAL IVP STA (23:26)
[2017-11-20] MEDS ORDERED: SODIUM CHLORIDE 0.9% 1,000 ML IV ONE (23:26)
--- NOTE | 2017-11-20 23:30 | ED ---
General Adult HPI - General Chief complaint: Abdominal Pain Stated complaint: post op kidney stone/pain Time Seen by Provider: 11/20/17 21:30 Source: patient, RN notes reviewed Mode of arrival: ambulatory Limitations: no limitations - History of Present Illness Initial comments: This is a 47-year-old male who presents emergency Department complaining of severe flank pain. Patient states he was diagnosed with kidney stones earlier in the month and he had lithotripsy this morning. Patient states since then the pain is gotten worse to the point where his [place] are not helping at all. Patient states she's nauseated but has not vomited. Patient denies any fever chills. Patient's main complaint is uncontrolled pain. - Related Data Home Medications Medication Instructions Recorded Confirmed Lisinopril [Prinivil] 10 mg PO HS 11/08/16 11/20/17 Naproxen Sodium [Aleve] 440 mg PO DAILY PRN 11/07/17 11/20/17 Previous Rx's Medication Instructions Recorded Hydrocodone/Acetaminophen [[place] 1 each PO Q4HR PRN #14 tab 11/07/17 5-325] Ketorolac [Toradol] 10 mg PO Q6HR #15 tab 11/07/17 Tamsulosin [Flomax] 0.4 mg PO DAILY #10 cap 11/07/17 Hydrocodone/Acetaminophen [[place] 1 - 2 each PO Q4HR PRN #20 tab 11/20/17 5-325] Allergies Allergy/AdvReac Type Severity Reaction Status Date / Time No Known Allergies Allergy Verified 11/20/17 21:38 Review of Systems ROS Statement: Those systems with pertinent positive or pertinent negative responses have been documented in the HPI. ROS Other: All systems not noted in ROS Statement are negative. Past Medical History Past Medical History: Coronary Artery Disease (CAD), Hypertension Additional Past Medical History / Comment(s): kidney stones, heart murmur History of Any Multi-Drug Resistant Organisms: None Reported Past Surgical History: Heart Catheterization, Orthopedic Surgery, Tonsillectomy Additional Past Surgical History / Comment(s): lithotripsy, right shoulder surgery Past Anesthesia/Blood Transfusion Reactions: No Reported Reaction Past Psychological History: No Psychological Hx Reported Smoking Status: Light tobacco smoker Past Alcohol Use History: Rare Past Drug Use History: None Reported - Past Family History Mother Family Medical History: No Reported History General Exam - General Exam Comments Initial Comments: GENERAL: Patient is well-developed and well-nourished. Patient is nontoxic and well- hydrated and is in moderate distress. ENT: Neck is soft and supple. No significant lymphadenopathy is noted. Oropharynx is clear. Moist mucous membranes. Neck has full range of motion without eliciting any pain. EYES: The sclera were anicteric and conjunctiva were pink and moist. Extraocular movements were intact and pupils were equal round and reactive to light. Eyelids were unremarkable. PULMONARY: Unlabored respirations. Good breath sounds bilaterally. No audible rales rhonchi or wheezing was noted. CARDIOVASCULAR: There is a regular rate and rhythm without any murmurs gallops or rubs. ABDOMEN: Soft and nontender with normal bowel sounds. SKIN: Skin is clear with no lesions or rashes and otherwise unremarkable. NEUROLOGIC: Patient is alert and oriented x3. Cranial nerves II through XII are grossly intact. Motor and sensory are also intact. Normal speech, volume and content. Symmetrical smile. MUSCULOSKELETAL: Normal extremities with adequate strength and full range of motion. No lower extremity swelling or edema. No calf tenderness. PSYCHIATRIC: Normal psychiatric evaluation. Limitations: no limitations Course Vital Signs 11/20/17 11/21/17 21:36 01:00 Temperature 98.2 F 98.0 F Pulse Rate 77 65 Respiratory 18 18 Rate Blood Pressure 143/83 130/82 O2 Sat by Pulse 98 97 Oximetry Medical Decision Making - Medical Decision Making Patient received pain medications and was much improved. Patient urinated felt the pain was coming back psychiatric other Dilaudid he felt comfortable after this to go home and continue his home medications. - Lab Data Result diagrams: 11/20/17 23:55 11/20/17 23:55 Lab Results 11/20/17 11/20/17 Range/Units 23:55 23:55 WBC 10.2 (3.8-10.6) k/uL RBC 5.27 (4.30-5.90) m/uL Hgb 16.1 (13.0-17.5) gm/dL Hct 46.8 (39.0-53.0) % MCV 88.9 (80.0-100.0) fL MCH 30.5 (25.0-35.0) pg MCHC 34.3 (31.0-37.0) g/dL RDW 13.3 (11.5-15.5) % Plt Count 308 (150-450) k/uL Neutrophils % 85 % Lymphocytes % 8 % Monocytes % 5 % Eosinophils % 1 % Basophils % 0 % Neutrophils # 8.7 H (1.3-7.7) k/uL Lymphocytes # 0.8 L (1.0-4.8) k/uL Monocytes # 0.5 (0-1.0) k/uL Eosinophils # 0.1 (0-0.7) k/uL Basophils # 0.0 (0-0.2) k/uL Sodium 132 L (137-145) mmol/L Potassium 4.4 (3.5-5.1) mmol/L Chloride 96 L (98-107) mmol/L Carbon Dioxide 24 (22-30) mmol/L Anion Gap 12 mmol/L BUN 12 (9-20) mg/dL Creatinine 0.90 (0.66-1.25) mg/dL Est GFR (CKD-EPI)AfAm >90 (>60 ml/min/1.73 sqM) Est GFR (CKD-EPI)NonAf >90 (>60 ml/min/1.73 sqM) Glucose 121 H (74-99) mg/dL Calcium 9.4 (8.4-10.2) mg/dL Total Bilirubin 0.9 (0.2-1.3) mg/dL AST 28 (17-59) U/L ALT 57 (21-72) U/L Alkaline Phosphatase 59 (38-126) U/L Total Protein 7.2 (6.3-8.2) g/dL Albumin 4.7 (3.5-5.0) g/dL Disposition Clinical Impression: Kidney stone Disposition: HOME SELF-CARE Condition: Good Instructions: Kidney Stones (ED) Is patient prescribed a controlled substance at d/c from ED?: No Referrals: Shravan Santoyo MD [Primary Care Provider] - 1-2 days Time of Disposition: 01:16
[2017-11-21 00:14] LABS: Basophils % (A) 0 %; Eosinophils # (A) 0.1 k/uL (0-0.7); Eosinophils % (A) 1 %; HCT 46.8 % (39.0-53.0); HGB 16.1 gm/dL (13.0-17.5); Lymphocytes # (A) 0.8 k/uL (1.0-4.8); Lymphocytes % (A) 8 %; MCH 30.5 pg (25.0-35.0); MCHC 34.3 g/dL (31.0-37.0); MCV 88.9 fL (80.0-100.0); Mean Platelet Volume 6.2; Monocytes # (A) 0.5 k/uL (0-1.0); Monocytes % (A) 5 %; Neutrophils # (A) 8.7 k/uL (1.3-7.7); Neutrophils % (A) 85 %; Platelet Count 308 k/uL (150-450); RBC 5.27 m/uL (4.30-5.90); RDW 13.3 % (11.5-15.5); WBC 10.2 k/uL (3.8-10.6)
[2017-11-21 00:25] LABS: ALT 57 U/L (21-72); AST 28 U/L (17-59); Albumin 4.7 g/dL (3.5-5.0); Alkaline Phosphatase 59 U/L (38-126); Anion Gap 12 mmol/L; Blood Urea Nitrogen 12 mg/dL (9-20); Calcium 9.4 mg/dL (8.4-10.2); Carbon Dioxide 24 mmol/L (22-30); Chloride 96 mmol/L (98-107); Glucose 121 mg/dL (74-99); Potassium 4.4 mmol/L (3.5-5.1); Sodium 132 mmol/L (137-145); Total Bilirubin 0.9 mg/dL (0.2-1.3); Total Protein 7.2 g/dL (6.3-8.2)
[2017-11-21] MEDS ORDERED: HYDROmorphone 1 MG/ML 1 ML SYRINGE IVP STA (01:14)
[2017-11-21 01:50] VITALS: BP 128/78; PULSE 74; TEMP 97.7
== END 2017-11-21 01:48 | disposition home or self-care (01) ==
LOC: EC 21:23
DX: N20.0 Calculus of kidney (principal); I25.10 Atherosclerotic heart disease of native coronary artery without angina pectoris; I10 Essential (primary) hypertension; F17.200 Nicotine dependence, unspecified, uncomplicated; Z79.899 Other long term (current) drug therapy; Z95.818 Presence of other cardiac implants and grafts
CPT/HCPCS: 36415; 80053; 85025; 99284; 96374; 96375 ×2; 96376; 96361; J2405; J1885; J1170 ×2

== ENCOUNTER → 2017-11-24 | Outpatient (CLI) | payer BC ==
--- NOTE | 2017-11-24 12:24 | XR ---
EXAMINATION TYPE: XR KUB DATE OF EXAM: 11/24/2017 12:08 PM CLINICAL HISTORY: Lithotripsy November 20 TECHNIQUE: Two supine KUB images of the abdomen are obtained. COMPARISON: Abdominal x-ray from [address] abdomen and pelvis from November 07, 2017 FINDINGS: Previously visualized 7 mm calculus left kidney has undergone successful lithotripsy with 3 -4 smaller fragments measuring 3 mm or smaller in size near the left 12th rib. There is overall nonobstructive bowel gas pattern. Scoliosis in the thoracic spine is redemonstrated. IMPRESSION: Successful lithotripsy of left sided 7 mm calculus.
== END | disposition home or self-care (01) ==
LOC: RADXRMAIN 11:48
PROVIDERS: ATTEND Urology
DX: N20.0 Calculus of kidney (principal); Z98.890 Other specified postprocedural states
CPT/HCPCS: 74018

== ENCOUNTER 2019-07-20 19:33 | Emergency (ER) | payer BC ==
[2019-07-20 19:40] VITALS: RESP 18
[2019-07-20] MEDS ORDERED: SODIUM CHLORIDE 0.9% 1,000 ML IV STA (19:57)
[2019-07-20] MEDS ORDERED: KETOROLAC 30 MG/ML 1 ML VIAL IVP STA (19:57)
[2019-07-20] MEDS ORDERED: MORPHINE SULFATE 4 MG/ML SYRINGE IV STA (19:57)
[2019-07-20] MEDS ORDERED: ONDANSETRON 4 MG/2 ML VIAL IVP STA (19:57)
[2019-07-20 20:15] LABS: Appearance,Urine Clear (Clear); Bilirubin,Urine Negative (Negative); Blood,Urine Negative (Negative); Color,Urine Light Yellow; Glucose,Urine (UA) Negative (Negative); Ketones,Urine Negative (Negative); Leukocyte Esterase,Urine Negative (Negative); Nitrite,Urine Negative (Negative); PH, Urine 6.5 (5.0-8.0); Protein,Urine Negative (Negative); Specific Gravity,Urine 1.007 (1.001-1.035); Urobilinogen,Urine <2.0 mg/dL (<2.0)
[2019-07-20 20:16] LABS: Basophils % (A) 0 %; Eosinophils # (A) 0.2 k/uL (0-0.7); Eosinophils % (A) 2 %; HCT 46.8 % (39.0-53.0); HGB 15.6 gm/dL (13.0-17.5); Lymphocytes # (A) 1.6 k/uL (1.0-4.8); Lymphocytes % (A) 13 %; MCH 29.6 pg (25.0-35.0); MCHC 33.4 g/dL (31.0-37.0); MCV 88.7 fL (80.0-100.0); Mean Platelet Volume 6.5; Monocytes # (A) 0.9 k/uL (0-1.0); Monocytes % (A) 7 %; Neutrophils # (A) 9.5 k/uL (1.3-7.7); Neutrophils % (A) 76 %; Platelet Count 322 k/uL (150-450); RBC 5.28 m/uL (4.30-5.90); WBC 12.5 k/uL (3.8-10.6)
[2019-07-20 20:18] VITALS: TEMP 98.6
[2019-07-20 20:27] LABS: ALT 34 U/L (4-49); AST 27 U/L (17-59); African American GFR (CKD) >90 (>60 ml/min/1.73 sqM); Albumin 4.8 g/dL (3.5-5.0); Alkaline Phosphatase 77 U/L (38-126); Anion Gap 9 mmol/L; Blood Urea Nitrogen 13 mg/dL (9-20); Calcium 9.8 mg/dL (8.4-10.2); Carbon Dioxide 28 mmol/L (22-30); Chloride 99 mmol/L (98-107); Glucose 108 mg/dL (74-99); Non-African American GFR(CKD) >90 (>60 ml/min/1.73 sqM); Potassium 4.2 mmol/L (3.5-5.1); Sodium 136 mmol/L (137-145); Total Bilirubin 0.4 mg/dL (0.2-1.3); Total Protein 7.4 g/dL (6.3-8.2)
--- NOTE | 2019-07-20 20:36 | CT ---
EXAMINATION TYPE: CT abdomen pelvis wo con DATE OF EXAM: 07/20/2019 COMPARISON: 11/07/2017 HISTORY: Left sided flank pain. CT DLP: 1259.4 mGycm Automated exposure control for dose reduction was used. TECHNIQUE: Helical acquisition of images was performed from the lung bases through the pelvis. FINDINGS: Lack of intravenous and oral contrast limit evaluation of both the hollow and solid viscera . LUNG BASES: No significant abnormality is appreciated. LIVER/GB: Hepatic parenchyma is diffusely hypoattenuated in comparison to that of the spleen, most co mmonly seen in hepatic steatosis. This finding limits evaluation for hepatic masses. No gross evidenc e of hepatic mass is seen. No intrahepatic biliary ductal dilatation. No cholelithiasis. Gallbladder is contracted. PANCREAS: No significant abnormality is seen. SPLEEN: No significant abnormality is seen. ADRENALS: No significant abnormality is seen. KIDNEYS: Definitely noted retroaortic left renal vein. Fluid attenuated bilateral superior pole renal cysts measure 4.7 cm on the right and 1.7 cm on the left. No hydronephrosis of either kidney. Nonobs tructing 4 mm right renal calculus. Poorly defined probable additional right cortical renal cysts alt darin suboptimally evaluated without contrast. FREE AIR: No free air is visualized PELVIC ADENOPATHY: No greater than 1 cm short axis lymph node is seen in the abdomen or pelvis other than a portal caval lymph node, which can be up to 1.5 cm normally. This measures 1.3 cm. OSSEOUS STRUCTURES: Stable mild compression deformity of L1. Mild to moderate degenerative change of the spine. BOWEL: Focal inflammatory fat stranding surrounds multiple descending colonic and proximal sigmoid d iverticula. There is no focal fluid collection to suggest abscess. No pneumoperitoneum seen. Fascial plane thickening is seen adjacent to the inflammatory fat stranding. High density in the proximal jim endix may represent inspissated debris or an appendicolith. No periappendiceal fat stranding. Appendi x is nonenlarged. OTHER: Minimal retroareolar probable gynecomastia bilaterally. IMPRESSION: 1. ACUTE UNCOMPLICATED DESCENDING COLONIC AND PROXIMAL SIGMOID COLONIC DIVERTICULITIS. 2. INSPISSATED DEBRIS OR APPENDICOLITH WITHIN THE PROXIMAL APPENDIX. NO CT EVIDENCE OF ACUTE APPENDIC ITIS.
[2019-07-20] MEDS ORDERED: AMOXIC-POT CLAV 875-125MG 1 EACH TAB PO STA (20:58)
--- NOTE | 2019-07-20 21:01 | ED ---
Abdominal Pain HPI - General Chief Complaint: Abdominal Pain Stated Complaint: Flank Pain Time Seen by Provider: 07/20/19 19:40 Source: patient Mode of arrival: ambulatory Limitations: no limitations - History of Present Illness Initial Comments: The patient is a 49-year-old male with past medical history of nephrolithiasis who presents emergency room with reported left-sided flank pain and left lower quadrant pain. States that the symptoms have been intermittent for the past week. States that last night he had onset of sharp shooting pain which has been constant. States that this does not feel similar to his kidney stone pain. He denies dysuria, hematuria voiding. Denies constipation, diarrhea, melenic stools or hematochezia. No fevers or chills. No ripping or tearing sensation to his back. Denies any numbness or tingling into his lower extremity. He took 2 Tylenol for pain control and states that it mildly helped. He recently had a PICC line removed from his left arm. He is on 6 weeks of antibiotics for a right shoulder surgery that got infected. He denies any nausea or vomiting. No chest pain or shortness of breath. There are no alleviating, precipitating modifying factors - Related Data Home Medications Medication Instructions Recorded Confirmed Lisinopril [Prinivil] 10 mg PO HS 11/08/16 11/20/17 Naproxen Sodium [Aleve] 440 mg PO DAILY PRN 11/07/17 11/20/17 Previous Rx's Medication Instructions Recorded Hydrocodone/Acetaminophen [[place] 1 each PO Q4HR PRN #14 tab 11/07/17 5-325] Ketorolac [Toradol] 10 mg PO Q6HR #15 tab 11/07/17 Tamsulosin [Flomax] 0.4 mg PO DAILY #10 cap 11/07/17 Hydrocodone/Acetaminophen [[place] 1 - 2 each PO Q4HR PRN #20 tab 11/20/17 5-325] Amoxicillin/Potassium Clav 1 tab PO Q12HR #20 tab 07/20/19 [Augmentin 875-125 Tablet] HYDROcodone/APAP 7.5-325MG [[place] 1 tab PO Q6HR PRN 3 Days #12 tab 07/20/19 7.5-325] Allergies Allergy/AdvReac Type Severity Reaction Status Date / Time No Known Allergies Allergy Verified 11/27/17 14:11 Review of Systems ROS Statement: Those systems with pertinent positive or pertinent negative responses have been documented in the HPI. ROS Other: All systems not noted in ROS Statement are negative. Past Medical History Past Medical History: Coronary Artery Disease (CAD), Hypertension Additional Past Medical History / Comment(s): kidney stones, heart murmur History of Any Multi-Drug Resistant Organisms: None Reported Past Surgical History: Heart Catheterization, Orthopedic Surgery, Tonsillectomy Additional Past Surgical History / Comment(s): lithotripsy, right shoulder surgery Past Anesthesia/Blood Transfusion Reactions: No Reported Reaction Past Psychological History: No Psychological Hx Reported Smoking Status: Light tobacco smoker Past Alcohol Use History: Rare Past Drug Use History: None Reported - Past Family History Mother Family Medical History: No Reported History General Exam Limitations: no limitations General appearance: alert, in no apparent distress Head exam: Present: atraumatic, normocephalic, normal inspection Eye exam: Present: normal appearance, PERRL, EOMI. Absent: scleral icterus, co njunctival injection, periorbital swelling ENT exam: Present: normal exam, mucous membranes moist Neck exam: Present: normal inspection. Absent: tenderness, meningismus, lymphadenopathy Respiratory exam: Present: normal lung sounds bilaterally. Absent: respiratory distress, wheezes, rales, rhonchi, stridor Cardiovascular Exam: Present: regular rate, normal rhythm, normal heart sounds. Absent: systolic murmur, diastolic murmur, rubs, gallop, clicks GI/Abdominal exam: Present: soft, tenderness (LLQ), normal bowel sounds. Absent: distended, guarding, rebound, rigid Extremities exam: Present: normal inspection, full ROM, normal capillary refill. Absent: tenderness, pedal edema, joint swelling, calf tenderness Back exam: Present: normal inspection Neurological exam: Present: alert, oriented X3, CN II-XII intact Psychiatric exam: Present: normal affect, normal mood Skin exam: Present: warm, dry, intact, normal color. Absent: rash Course Vital Signs 07/20/19 07/20/19 07/20/19 19:37 20:16 21:13 Temperature 97.8 F 98.6 F Pulse Rate 101 H 93 86 Respiratory 18 18 18 Rate Blood Pressure 149/95 124/78 124/68 O2 Sat by Pulse 99 97 98 Oximetry Medical Decision Making - Medical Decision Making Upon arrival the patient was placed in room 15. A thorough history and physical exam was performed. Peripheral IV was established. The patient was given 30 mg of Toradol IV, 1 L bolus of normal saline, 4 mg of Zofran and 4 mg of morphine. Laboratory studies were conducted. White blood cell count is 12.5. Urinalysis is negative. CT of the patient's abdomen and pelvis without contrast demonstrates acute uncomplicated descending colonic and proximal sigmoid colonic diverticulitis. The patient is reevaluated and states that his pain is now 2 out of 10. Discuss the diagnosis, differential and treatment options. The patient prefers to go home at this time. He is provided with a dose of Augmentin the ER. He'll be placed on a ten-day course. I also provided him with a course of [place] for pain control. He does sign and opioids start talking form. The patient is to follow-up with his primary care doctor within 2-4 days. He'll also need to see a GI doctor for colonoscopy once the infection is under control. Return to the emergency room for any new or worsening symptoms. Return parameters were discussed. The patient was in agreement treatment plan he was discharged home stable condition - Lab Data Result diagrams: 07/20/19 19:49 07/20/19 19:49 Lab Results 07/20/19 07/20/19 07/20/19 Range/Units 19:49 19:49 19:49 WBC 12.5 H (3.8-10.6) k/uL RBC 5.28 (4.30-5.90) m/uL Hgb 15.6 (13.0-17.5) gm/dL Hct 46.8 (39.0-53.0) % MCV 88.7 (80.0-100.0) fL MCH 29.6 (25.0-35.0) pg MCHC 33.4 (31.0-37.0) g/dL RDW 13.0 (11.5-15.5) % Plt Count 322 (150-450) k/uL Neutrophils % 76 % Lymphocytes % 13 % Monocytes % 7 % Eosinophils % 2 % Basophils % 0 % Neutrophils # 9.5 H (1.3-7.7) k/uL Lymphocytes # 1.6 (1.0-4.8) k/uL Monocytes # 0.9 (0-1.0) k/uL Eosinophils # 0.2 (0-0.7) k/uL Basophils # 0.0 (0-0.2) k/uL Sodium 136 L (137-145) mmol/L Potassium 4.2 (3.5-5.1) mmol/L Chloride 99 (98-107) mmol/L Carbon Dioxide 28 (22-30) mmol/L Anion Gap 9 mmol/L BUN 13 (9-20) mg/dL Creatinine 0.97 (0.66-1.25) mg/dL Est GFR (CKD-EPI)AfAm >90 (>60 ml/min/1.73 sqM) Est GFR (CKD-EPI)NonAf >90 (>60 ml/min/1.73 sqM) Glucose 108 H (74-99) mg/dL Calcium 9.8 (8.4-10.2) mg/dL Total Bilirubin 0.4 (0.2-1.3) mg/dL AST 27 (17-59) U/L ALT 34 (4-49) U/L Alkaline Phosphatase 77 (38-126) U/L Total Protein 7.4 (6.3-8.2) g/dL Albumin 4.8 (3.5-5.0) g/dL Lipase 107 (23-300) U/L Urine Color Light Yellow Urine Appearance Clear (Clear) Urine pH 6.5 (5.0-8.0) Ur Specific [place] 1.007 (1.001-1.035) Urine Protein Negative (Negative) Urine Glucose (UA) Negative (Negative) Urine Ketones Negative (Negative) Urine Blood Negative (Negative) Urine Nitrite Negative (Negative) Urine Bilirubin Negative (Negative) Urine Urobilinogen <2.0 (<2.0) mg/dL Ur Leukocyte Esterase Negative (Negative) Disposition Clinical Impression: Diverticulitis Disposition: HOME SELF-CARE Condition: Stable Instructions (If sedation given, give patient instructions): Diverticulitis (ED) Additional Instructions: Please follow-up with your primary care doctor. Take the antibiotic and pain medication as directed. Follow up with the GI doctor as well. Return to the emergency room for any new or worsening symptoms Prescriptions: Amoxicillin/Potassium Clav [Augmentin 875-125 Tablet] 1 tab PO Q12HR #20 tab HYDROcodone/APAP 7.5-325MG [[place] 7.5-325] 1 tab PO Q6HR PRN 3 Days #12 tab PRN Reason: Pain Is patient prescribed a controlled substance at d/c from ED?: Yes When asked, does pt state using other controlled substances?: No If prescribed controlled substance>3 days was MAPS reviewed?: Prescribed <3 Days If opioid is for acute pain is fill amount 7 days or less?: Yes If Rx opioid, was Start Talking consent form obtained?: Yes Referrals: Shravan Santoyo MD [Primary Care Provider] - 1-2 days Farnaz Logan MD [STAFF PHYSICIAN] - 1-2 days Time of Disposition: 21:01
[2019-07-20 21:14] VITALS: BP 124/68; PULSE 86
== END 2019-07-20 21:17 | disposition home or self-care (01) ==
LOC: EC 19:33
DX: K57.32 Diverticulitis of large intestine without perforation or abscess without bleeding (principal); I25.10 Atherosclerotic heart disease of native coronary artery without angina pectoris; I10 Essential (primary) hypertension; F17.200 Nicotine dependence, unspecified, uncomplicated; Z79.899 Other long term (current) drug therapy
CPT/HCPCS: 99284; 96374; 96375 ×2; 96361; 36415; 80053; 83690; 85025; 81003; 74176; J2270; J2405; J1885

== ENCOUNTER 2024-09-15 11:00 | Emergency (ER) | payer BC ==
[2024-09-15 11:05] VITALS: RESP 18
--- NOTE | 2024-09-15 12:00 | ED ---
General Adult HPI - General Chief complaint: Neck Pain/Injury Stated complaint: Neck and Back Pain Time Seen by Provider: 09/15/24 11:21 Source: patient, RN notes reviewed Mode of arrival: ambulatory Limitations: no limitations - History of Present Illness Initial comments: 54-year-old male presents to the emergency department for evaluation of neck víctor n. Patient states that this started around 1 month ago and has been worsening. He notes that the pain is localized in the cervical spine. He states that the pain is worse when he is up and moving. Better at rest. He reports that he has attempted topical medication, heat pads, ice packs without any relief. He denies any trauma. Denies any fever, chills. Denies blood thinner use. - Related Data Home Medications Medication Instructions Recorded Confirmed lisinopriL [Prinivil] 10 mg PO HS 11/08/16 09/14/24 Previous Rx's Medication Instructions Recorded HYDROcodone/APAP 7.5-325MG [[place] 1 tab PO Q6HR PRN 3 Days #12 tab 07/20/19 7.5-325] Allergies Allergy/AdvReac Type Severity Reaction Status Date / Time No Known Allergies Allergy Verified 09/15/24 11:05 Review of Systems ROS Statement: Those systems with pertinent positive or pertinent negative responses have been documented in the HPI. ROS Other: All systems not noted in ROS Statement are negative. Past Medical History Past Medical History: Coronary Artery Disease (CAD), Hypertension Additional Past Medical History / Comment(s): kidney stones, heart murmur History of Any Multi-Drug Resistant Organisms: None Reported Past Surgical History: Heart Catheterization, Orthopedic Surgery, Tonsillectomy Additional Past Surgical History / Comment(s): lithotripsy, right shoulder surgery Past Anesthesia/Blood Transfusion Reactions: No Reported Reaction Past Psychological History: No Psychological Hx Reported Smoking Status: Former smoker Past Alcohol Use History: Rare Past Drug Use History: None Reported - Past Family History Mother Family Medical History: No Reported History General Exam Limitations: no limitations General appearance: alert, in no apparent distress Head exam: Present: atraumatic, normocephalic, normal inspection Eye exam: Present: normal appearance, PERRL, EOMI. Absent: scleral icterus, conjunctival injection, periorbital swelling ENT exam: Present: normal exam, mucous membranes moist Neck exam: Present: normal inspection, full ROM. Absent: tenderness, meningismus, lymphadenopathy Respiratory exam: Present: normal lung sounds bilaterally. Absent: respiratory distress, wheezes, rales, rhonchi, stridor Cardiovascular Exam: Present: regular rate, normal rhythm, normal heart sounds. Absent: systolic murmur, diastolic murmur, rubs, gallop, clicks Extremities exam: Present: normal inspection, full ROM, normal capillary refill. Absent: tenderness, pedal edema, joint swelling, calf tenderness Back exam: Present: normal inspection Neurological exam: Present: alert, oriented X3 Psychiatric exam: Present: normal affect, normal mood Skin exam: Present: warm, dry, intact, normal color. Absent: rash Course Vital Signs 09/15/24 09/15/24 11:02 12:45 Temperature 97.8 F 98.0 F Pulse Rate 105 H 96 Respiratory 18 18 Rate Blood Pressure 122/87 120/86 O2 Sat by Pulse 97 99 Oximetry Medical Decision Making - Medical Decision Making Was pt. sent in by a medical professional or institution (, PA, EMBROIDERY PATTERNMAKER, urgent care, hospital, or [facility]...) When possible be specific @ -[No] Did you speak to anyone other than the patient for history (EMS, parent, family, police, friend...)? What history was obtained from this source @ -[No] Did you review nursing and triage notes (agree or disagree)? Why? @ -[I reviewed and agree with nursing and triage notes] Were old charts reviewed (outside hosp., previous admission, EMS record, old EKG , old radiological studies, urgent care reports/EKG's, [facility] records)? Report findings @ -[No old charts were reviewed] Differential Diagnosis (chest pain, altered mental status, abdominal pain women, abdominal pain men, vaginal bleeding, weakness, fever, dyspnea, syncope, headache, dizziness, GI bleed, back pain, seizure, CVA, palpatations, mental health, musculoskeletal)? @ -[Differential Back Pain: Strain, zoster, cauda equina syndrome, epidural abscess, vertebral osteomyelitis, discitis, fracture, subluxation, disc herniation, DJD, spinal stenosis, dissection, AAA, pancreatitis, peptic ulcer disease, pyelonephritis, kidney stone, this is not meant to be an all-inclusive list. ] EKG interpreted by me (3pts min.). @ -[none] X-rays interpreted by me (1pt min.). @ -[XR of the cervical spine shows osteoarthritic change without evidence for acute process] CT interpreted by me (1pt min.). @ -[None done] U/S interpreted by me (1pt. min.). @ -[None done] What testing was considered but not performed or refused? (CT, X-rays, U/S, labs)? Why? @ -[None] What meds were considered but not given or refused? Why? @ -[None] Did you discuss the management of the patient with other professionals (professionals i.e. , PA, EMBROIDERY PATTERNMAKER, lab, RT, psych nurse, social problems specialist, rural health consultant, teacher, chief mechanical officer, residential case manager)? Give summary @ -[No] Was smoking cessation discussed for >3mins.? @ -[No] Was critical care preformed (if so, how long)? @ -[No] Were there social determinants of health that impacted care today? How? (Homelessness, low income, unemployed, alcoholism, drug addiction, transportation, low edu. Level, literacy, decrease access to med. care, senior living, rehab)? @ -[No] Was there de-escalation of care discussed even if they declined (Discuss DNR or withdrawal of care, Hospice)? DNR status @ -[No] What co-morbidities impacted this encounter? (DM, HTN, Smoking, COPD, CAD, Cancer, CVA, ARF, Chemo, Hep., AIDS, mental health diagnosis, sleep apnea, morbid obesity)? @ -[None] Was patient admitted / discharged? Hospital course, mention meds given and route, prescriptions, significant lab abnormalities, going to OR and other pertinent info. @ -[discharged. Patient presented to the emergency department for neck pain x 1 month. ] Undiagnosed new problem with uncertain prognosis? @ -[No] Drug Therapy requiring intensive monitoring for toxicity (Heparin, Nitro, I nsulin, Cardizem)? @ -[No] Were any procedures done? @ -[No] Diagnosis/symptom? @ -[neck pain] Acute, or Chronic, or Acute on Chronic? @ -acute Uncomplicated (without systemic symptoms) or Complicated (systemic symptoms)? @ -uncomplicated Side effects of treatment? @ -[No] Exacerbation, Progression, or Severe Exacerbation? @ -[No] Poses a threat to life or bodily function? How? (Chest pain, [place], [place], pneumonia, PE, COPD, DKA, ARF, appy, cholecystitis, CVA, Diverticulitis, Homicidal, Suicidal, threat to staff... and all critical care pts) @ -[No] Disposition Clinical Impression: Musculoskeletal neck pain Disposition: HOME SELF-CARE Condition: Stable Instructions (If sedation given, give patient instructions): Acute Neck Pain (ED) Additional Instructions: Please follow up with your doctor and orthopedics. Return to the emergency department for new or worsening symptoms. Is patient prescribed a controlled substance at d/c from ED?: No Referrals: Shravan Santoyo MD [Primary Care Provider] - 1-2 days
--- NOTE | 2024-09-15 12:10 | XR ---
EXAMINATION TYPE: XR cervical spine comp DATE OF EXAM: 09/15/2024 12:00 PM COMPARISON: None CLINICAL INDICATION: Male, 54 years old with history of pain; PHH, pain TECHNIQUE: The cervical spine was imaged in frontal, lateral, odontoid and bilateral oblique. FINDINGS: The osseous structures show normal alignment without evidence of an acute fracture. There are osteoph ytes noted throughout the cervical spine on the anterior and lateral aspects of the vertebral bodies worse at C4-C5 and C6. The intervertebral disk spaces are narrowed at multiple levels. Pedicles are i ntact. Soft tissues are within normal limits. The odontoid appears intact. IMPRESSION: 1. No fracture or dislocation. 2. Mild moderate degenerative disc disease changes of the cervical spine. [facility], , 09/15/2024 12:08 PM
[2024-09-15 12:47] VITALS: BP 120/86; PULSE 96; TEMP 98
== END 2024-09-15 12:47 | disposition home or self-care (01) ==
LOC: EC 11:00
DX: M54.2 Cervicalgia (principal); Z87.891 Personal history of nicotine dependence
CPT/HCPCS: 72050; 99283